=== PATIENT | female | born 1975 | race Hispanic/Latino ===

== ENCOUNTER 2020-11-08 03:17 | Inpatient (IN) | payer BC, SELFPAY ==
--- OUTSIDE RECORDS SUMMARY | 2020-11-08 03:23 | XMS REPORT | Continuity of Care Document ---
:1975 Author Organization [facility] t Address [address] [place] [address] Care Team Providers Name Role Phone Jean-Pierre ROMAN Attending Clinician Doctor Unassigned, Name Attending Clinician Unavailable Problems This patient has no known problems. Allergies, Adverse Reactions, Alerts This patient has no known allergies or adverse reactions. Medications This patient has no known medications. Procedures This patient has no known procedures. Encounters Start End Encounter Admission Attending Care Care Encounter Source Date/Time Date/Time Type Type Clinicians Facility Department ID 2020-10-30 2020-10-30 [facility] Alison Morejon [facility] [id number] 09:20:00 23:59:00 Encounter Renee [id number] [place] [id number] [place] [id number] 2020-09-19 2020-09-19 Orders Doctor CEE [id number] 00:00:00 00:00:00 Only UnassignedSOM [id number] [place] [facility] [id number] Results This patient has no known results.
[2020-11-08 03:55] VITALS: BMI 27.6
[2020-11-08] MEDS ORDERED: MORPHINE 4 MG/ML SYR IV PRN (04:01)
[2020-11-08] MEDS ORDERED: PROMETHAZINE INJ 25 MG/ML AMP IV PRN (04:01)
[2020-11-08 04:53] LABS: Urine Appearance CLEAR; Urine Bilirubin NEGATIVE (NEG); Urine Blood TRACE (NEG); Urine Color YELLOW; Urine Glucose NEGATIVE (NEG); Urine Protein NEGATIVE (NEG); Urine Specific Gravity >=1.030 (1.005-1.030); Urine Urobilinogen 0.2 mg/dL (0.2-1.0); Urine pH 7.5 (5.0-7.0)
[2020-11-08] MEDS: Levofloxacin500mg IV 500 MG/100 ML BAG IV SCH (04:57)
[2020-11-08] MEDS: Ringers Lactate 1,000 ML IV SCH ×2 (04:57→13:00)
[2020-11-08 05:14] LABS: Urine Microscopic Reflex ORDER UMIC
[2020-11-08 06:11] LABS: Urine Bacteria <20 /HPF (<20)
--- NOTE | 2020-11-08 12:09 | P.HP ---
Date of Service: 11/08/20
--- NOTE | 2020-11-08 12:30 | P.HP ---
Date of Service: 11/08/20 PC: This 45-year-old female presents emergency room with severe right upper quadrant abdominal pain for diagnosis and treatment. HPC: Patient has been experiencing right upper quadrant and epigastric pain for the last few months. Has had a number of episodes that were quite severe radiating into her back. Last night was the worst achieved had, as strong as labor pains, and she came in for assessment. PMH: 2 para 2 PSHx: Never had surgery before SOC: No known allergies SYS REVIEW: No cough, wheeze, shortness of breath. No chest pain or palpitations. Denies any urinary complaints O/E awake alert vital signs are stable HEENT: Nonicteric Chest: Air entry equal bilaterally ABD: The right upper quadrant LOCO: Intact DATA: Has documented cholecystitis with cholelithiasis IMPRESSION: Cholecystitis with cholelithiasis PLAN: The to the operating room for laparoscopic cholecystectomy with a cho langiogram. The risks of this procedure have been discussed. The possibility of bleeding, infection, injury to bile ducts blood vessels and intestines has been described. The possible need for an open and/or further surgeries and procedures was discussed. She understands and wants us to proceed.
[2020-11-08] MEDS ORDERED: Ringers Lactate 1,000 ML IV ONE ×2 (12:36→14:41)
[2020-11-08] MEDS ORDERED: MIDAZOLAM HCL 2 MG/2 ML INJ ONE (13:03)
[2020-11-08] MEDS ORDERED: propofoL 200 MG/20 ML VIAL IV ONE (13:03)
[2020-11-08] MEDS ORDERED: FENTANYL CITR 100 MCG/2 ML ONE (13:03)
[2020-11-08] MEDS ORDERED: ONDANSETRON 4 MG/2 ML VIAL ONE (13:04)
[2020-11-08] MEDS ORDERED: LIDOCAINE 2% MPF 5 ML VIAL ONE (13:06)
[2020-11-08] MEDS ORDERED: ROCURONIUM 50 MG/5 ML VIAL IV ONE (13:07)
[2020-11-08] MEDS ORDERED: dexAMETHasone 10 MG/ML VIAL ONE (13:41)
[2020-11-08] MEDS ORDERED: KETOROLAC 30 MG/ML INJ ONE (13:41)
[2020-11-08] MEDS ORDERED: GLYCOPYRROLATE 0.2 MG/ML SYR ONE ×2 (14:17)
[2020-11-08] MEDS ORDERED: NEOSTIGMINE 1 MG/ML -5 ML ONE (14:17)
--- NOTE | 2020-11-08 14:20 | P.OP ---
Preoperative diagnosis: Cholecystitis with cholelithiasis Postoperative diagnosis: The same Primary procedure: Laparoscopic cholecystectomy Secondary procedure: Cholangiogram Other procedure(s): Marcelo blocked Anesthesia: General Estimated blood loss: Less than than 20 cc Specimen: 1 gallbladder and contents Operative Technique: The patient was brought to the operating room placed supine on the table. After the induction of adequate general endotracheal anesthesia, the area of the abdomen is prepped with a DuraPrep solution, and draped in the usual aseptic manner. A subumbilical incision was made. This brought down through the skin and subcutaneous tissue. The Visiport was used to enter the peritoneal cavity and create a pneumoperitoneum to approximately 12 mm of mercury. Under direct vision a 5 mm trocar was placed in the upper midline, and 2 other 5 mm trocars in the right lateral side. The patient was then elevated and rolled towards the power sewing machine operator's side. We could see[an acutely inflamed gallbladder. There was evidence of considerable edema around Niya's pouch. A grasper was placed on the fundus of the gallbladder. Another 1 was placed down by Niya's pouch. Applying lateral traction we were able to dissect and expose the cystic duct and artery. We continued with our dissection until we had achieved the critical view. The artery was dealt with 1st. It was clipped and divided in the usual manner. A clip was then placed between the gallbladder and the cystic duct. An opening was made into the cystic duct. We attempted then to pass the cholangiocath into the cystic duct. Having successfully done so, a cholangiogram was obtained using fluoroscopy. We could see good flow contrast into the duodenum. A pressure injection allowed us to demonstrate the upper radicals. No filling defects were noted. Clips were now placed on the distal portion of the cystic duct. The cystic duct was then divided. The gallbladder was now dissected free from the liver bed, placed into an Endo-Catch, and brought out through the umbilical trocar site. The gallbladder fossa was inspected to ensure adequate hemostasis. It was irrigated with a saline solution and the irrigant aspirated from the peritoneal cavity. 0.25% Marcaine was aerosolized into the right upper quadrant and the gallbladder fossa. The umbilical trocar s ite was now approximated with an Endo Close and an absorbable sutures. The pneumoperitoneum was then collapsed, the suture tied, and eveline applied to the skin. A further 0.25% Marcaine was injected around are incision sites. At the end of the procedure the patient was in a stable condition when sent to the recovery room. Needle sponge instrument count were correct. 1 specimen was sent for histopathology. Complications: None
[2020-11-08] MEDS ORDERED: ONDANSETRON 4 MG/2 ML VIAL IV PRN (14:28)
[2020-11-08] MEDS: HYDROMORPHONE HCL 1 MG/ML INJ ONE ×2 (14:35→14:40)
[2020-11-08] MEDS ORDERED: MEPERIDINE HCL 25 MG/ML SYR ONE (15:01)
--- NOTE | 2020-11-08 15:06 | RAD REPORT ---
EXAM DESCRIPTION: RAD - Cholangiogram Oper-Xray Or - 11/08/2020 2:58 pm CLINICAL HISTORY: LAP BRIDGETT WITH IOC COMPARISON: No comparisons FINDINGS: Cystic duct injection is noted. Common duct appears normal caliber without filling defects seen to suggest retained stone. Total fluoro time: 0.4 minutes.
[2020-11-08 22:23] VITALS: O2SAT 96
[2020-11-09] MEDS: Levofloxacin500mg IV 500 MG/100 ML BAG IV SCH (06:03)
[2020-11-09] MEDS: HYDROCODONE/APAP 7.5/325 MG TAB PO PRN ×2 (06:11→12:00)
[2020-11-09 12:16] VITALS: BP 124/79; TEMP 97.1
== END 2020-11-09 12:22 | disposition home or self-care (01) | DRG 419 ==
LOC: 2ND 03:17 → OBSVTOIN 11-09 10:09
PROVIDERS: ADMIT Surgery; ATTEND Surgery
PROC: BF522Z0 Other Imaging of Gallbladder using Fluorescing Agent, Intraoperative (ICD-10-PCS; 2020-11-08)
PROC: 0FT44ZZ Resection of Gallbladder, Percutaneous Endoscopic Approach (ICD-10-PCS; principal; 2020-11-08 12:45)
DX: K80.10 Calculus of gallbladder with chronic cholecystitis without obstruction (principal); Z20.822 Contact with and (suspected) exposure to COVID-19
CPT/HCPCS: 74300; 81003; 81015; 88304; G0378; G0379; J1100; J1170; J2175; J2250; J2405; J2704; J2710; J3010; J7120; U0003